=== PATIENT | female | born 1970 | race Caucasian/White ===

== ENCOUNTER 2025-05-18 13:30 | Outpatient (AMB) | payer BC, SELFPAY ==
--- NOTE | 2025-05-18 13:45 | A.OFFPC_ITS ---
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 Allergies No Known Allergies Allergy (Verified 05/18/25 13:46) Medication List - Last Reconciled 05/18/25 by Uma Tran PA-C calc-D3-mag cit,ox-K2-herb 353 300 mg-25 mcg- 66 mg-37.5 mcg (Alive Calcium- Vitamin D3-K2) tabs PO fluoxetine 40 mg PO BID levothyroxine 75 mcg PO DAILY omeprazole 10 mg PO DAILY trazodone 50 mg PO BEDTIME valacyclovir 1,000 mg PO BID PRN Tobacco use date assessed: 05/18/25 Dental Screening Dental Screen Date: 05/18/25 Did you have a dental visit in the last 12 months?: Yes Did you have a dental problem in the last 6 months where you did not have access to dental care?: No Was dental information given to patient?: 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 Presenting to establish care after her previous provider at [facility] retired. For her mental health conditions, she receives online care through [facility], including medication management and counseling. She is up-to-date with her electrical engineering intern for her HPV and has current Pap smears. The patient underwent a right knee meniscus repair in 2017. She continues to have issues with the knee, reporting that it mckinley and gives out, especially on stairs. She notes that the left knee has started to hurt due to compensation. She did not complete formal physical therapy after the surgery but has done it in the past and performs stretching exercises. The last X-ray of the knee was a year ago. She reports a history of pes planus (flat feet) since childhood, for which she previously wore braces in her shoes. This causes excruciating pain, as her arch lies flat on the floor, and is exacerbated by her job, which requires her to be on her feet all day. She currently uses roxi-wxa-ecatdom insoles. mammogram: 09/2025 scheduled eye doctor: Dr. 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 Mother No problems noted. Other Thyroid disease Social History Housing: House Patient Tobacco Use Status: Never used Tobacco Tobacco use type: Cigarette e-Cigarette/Vaping Use: Never Used Second Hand Smoke Exposure: No service: No Current occupational status: employed Current occupation: food safety technician Cognitive needs: No Hearing needs: No Vision needs: No Questionnaire PHQ-9 Over the last 2 weeks, how often have you been bothered by any of the following problems? 1. Little interest or pleasure in doing things: several days 2. Feeling down, depressed, or hopeless: several days 3. Trouble falling or staying asleep, or sleeping too much: not at all 4. Feeling tired or having little energy: several days 5. Poor appetite or overeating: several days 6. Feeling bad about yourself - or that you are a failure or have let yourself or your family down: several days 7. Trouble concentrating on things, such as reading the newspaper or watching television: several days 8. Moving or speaking so slowly that other people could have noticed. Or the opposite - being so fidgety or restless that you have been moving around a lot more than usual: several days 9. Thoughts that you would be better off or of hurting yourself in some way: not at all Total score: 7 Depression Screening Interpretation: Positive Depression Screening Follow-up: Existing condition and In treatment Depression Screening Done: Yes 62100 - PHQ-9 Billing: Yes Source: Developed by Drs. Marc Watson, Celeste Mar, Esa Painting and colleagues, with an educational andre from [employer]. Thrive Questionnaire Date Thrive assessed: 05/16/25 I am a: Patient What is your living situation today?: I have a steady place to live Within the past 12 months, did the food you bought not last and you didn't have the money to get more?: Sometimes True Within the past 12 months, did you worry whether your food would run out before you got money to buy more?: I choose not to answer this question Do you have trouble paying for medicines?: No Do you have trouble getting transportation to medical appointments?: No Do you have trouble paying your heating and electricity bill?: No Do you have trouble taking care of your child, family member or friend?: No Do you have trouble with day-to-day activities such as bathing, preparing meals, shopping, managing finances, etc.?: No Are you currently unemployed and looking for a job?: Yes Are you interested in more education?: No Please select the resources that you would like help with: None Currently or been in a relationship where the following occur: Controlled Emotionally and No concerns reported THRIVE Score: 2 AUDIT C Alcohol Use Questionnaire (AUDIT-C) 1. How often do you have a drink containing alcohol?: 2-4 times a month 2. How many drinks containing alcohol do you have on a typical day when you are drinking?: 3 or 4 3. How often do you have six or more drinks on one occasion?: Less than monthly Total Score: 4 Score Reviewed/Action Taken: Yes MIAH-7 AMB Questionnaire MIAH-7 Date MIAH - 7 assessed: 05/18/25 Feeling nervous, anxious, or on edge: 1 = Several days Not being able to stop or control worryin = Several days Worrying too much about different things: 1 = Several days Trouble relaxin = Several days Being so restless that it is hard to sit still: 1 = Several days Becoming easily annoyed or irritable: 1 = Several days Feeling afraid as if something awful might happen: 1 = Several days Total MIAH-7 score (0-4 normal; 5-9 mild; 10-14 moderate; 15-21 severe): 7 Source: Developed by Drs. Marc Watson, Celeste Mar, Esa Painting and colleagues, with an educational andre from [employer]. Review of Systems Const Denies body aches, Denies fatigue, Denies fever(s), Denies frequent falls and Denies weakness Eyes Reports no additional complaints and Denies change in vision ENT Denies dysphagia, Denies dizziness, Denies facial pain and Denies odynophagia Card Denies chest pain, Denies lightheadedness and Denies dyspnea Resp Denies dyspnea GI Denies abdominal pain, Denies dysphagia, Denies nausea, Denies odynophagia and Denies vomiting Denies urinary frequency, Denies dysuria, Denies urinary hesitancy and Denies urinary urgency Musc Reports as per HPI, Denies back pain and Denies myalgias Skin/Breast Reports system reviewed and no additional complaints, except as documented Neuro Denies dizziness, Denies frequent falls and Denies weakness Psych Reports no additional complaints Endo Denies fatigue Physical exam (Primary Care) Vital Signs: Last Vital Signs Pulse 57 05/18/25 13:49 BP 110/80 05/18/25 13:49 Pulse Ox 97 05/18/25 13:49 Oxygen Delivery Method Room Air 05/18/25 13:49 BMI result Body Mass Index 23.8 Tobacco/Smoking Status: Tobacco use Status Tobacco use date assessed 05/18/25 05/18/25 13:56 Patient Tobacco Use Status Never used Tobacco 05/18/25 13:56 Tobacco use type Cigarette 05/18/25 13:56 e-Cigarette/Vaping Use Never Used 05/18/25 13:56 PHQ-9: PHQ-9 Score PHQ-9: Total score 7 05/18/25 14:34 Depression Screening Interpretation: Positive Depression Screening Follow-up: Existing condition and In treatment Thrive Assessment: Date of Thrive Assessment Date Thrive assessed 05/16/25 05/18/25 13:56 Currently or been in a relationship where the following occur: Controlled Emotionally and No concerns reported Const General: cooperative, healthy appearing, comfortable and no acute distress Orientation/consciousness: patient oriented x3 HENMT Head: Yes normocephalic Ears: hearing grossly normal bilaterally General nose exam: Normal external nose present Eyes General: appearance normal, both eyes and all related structures Conjunctivae: conjunctivae normal Neck Neck: Yes full ROM and Yes no lymphadenopathy Resp Effort & Inspection: normal respiratory effort Auscultation: clear to auscultation bilaterally, no crackles, no rales, no rhonchi and no wheezes Cardio Rate: regular rate Rhythm: regular rhythm Skin General skin exam: no rashes or lesions noted Neuro General: patient oriented x3 Gait exam (Neuro): Normal gait present Extrem Other: TTP to lateral aspect of right knee. Intact strength, sensation and pulses in ann marie LE General: Yes normal to inspection, Yes full ROM and No edema Psych Affect: normal affect Attitude: cooperative Insight: Good insight present (Psych) Judgement: Good judgement present (Psych) Immunizations Tenivac (PF) 5 Lf unit-2 Lf unit/0.5 mL intramuscular syringe Performing Provider: Uma Tran PA-C [facility] Administered by: ZAHRA Devlin on 05/18/25 14:32 Dose Route Admin Location Dispensed Lot Number Expiration Date NDC Pin Inserter 0.5 mL IM Left Deltoid 0.5 mL [id number] 03/05/27 56491-349-39 [employer] Total Dispensed Waste 0.5 mL 0 % VIS Given Date VIS Provided VIS Publication Date 05/18/25 Single Vaccine 21 Eligibility Eligibility Date Funding Source Not [facility] Eligible 05/18/25 Private Coding Level of Care Code New Pt Level 4 (90965) Diagnoses Depression F32.A Anxiety F41.9 OCD (obsessive compulsive disorder) F42.9 GERD (gastroesophageal reflux disease) K21.9 HPV (human papilloma virus) infection B97.7 Hypercholesterolemia E78.00 Hypothyroidism E03.9 Flat feet M21.41; M21.42 Right knee pain M25.561 HSV (herpes simplex virus) infection B00.9 Additional Codes PHQ-9 - 26610 - PHQ-9 Billing: Yes ([id number]) Assessment & Plan Assessment & Plan (1) Depression: Comment: [facility] for medication and counseling Code(s): F32.A - Depression, unspecified Category: Medical Plan: The patient is established with an online mental health service, [facility], for medication management and counseling. She will continue with her current providers, who manage her fluoxetine and trazodone prescriptions. Discussed with patient if she would like in person counselor this can be arranged. (2) Anxiety: Code(s): F41.9 - Anxiety disorder, unspecified Category: Medical Plan: See above (3) OCD (obsessive compulsive disorder): Code(s): F42.9 - Obsessive-compulsive disorder, unspecified Category: Medical Plan: See above. (4) GERD (gastroesophageal reflux disease): Code(s): K21.9 - Gastro-esophageal reflux disease without esophagitis Category: Medical Plan: Avoid trigger foods such as citrus, tomato products, soda, caffeine, spicy foods and other foods that may be irritating to your stomach. Avoid laying flat 3-4 hours after eating and elevate the head of the bed 30 degrees to prevent acid from moving into the esophagus. 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 Triglyceride goal of less than 150 and LDL goal of less than 130. Ordered for updated blood work. (7) Hypothyroidism: Code(s): E03.9 - Hypothyroidism, unspecified Category: Medical Plan: The patient's thyroid function will be checked as part of her routine blood work. A refill for her levothyroxine will be sent to her preferred pharmacy. (8) Flat feet: Code(s): M21.41 - Flat foot [pes planus] (acquired), right foot; M21.42 - Flat foot [pes planus] (acquired), left foot Category: Medical Plan: The patient experiences excruciating foot pain related to her pes planus, which is exacerbated by her work. A referral will be placed to podiatry for evaluation for custom insoles or possible cortisone injections. (9) Right knee pain: Code(s): M25.561 - Pain in right knee Category: Medical Plan: The patient's symptoms of buckling and catching are concerning for meniscal pathology, particularly given her history of meniscal repair and subsequent risk for arthritis. An X-ray of the right knee will be ordered to assess for changes since her last imaging a year ago. A referral to orthopedics will be placed once the X-ray results are available to provide a more specific diagnosis for the consultation. (10) HSV (herpes simplex virus) infection: Code(s): B00.9 - Herpesviral infection, unspecified Category: Medical Plan: Continue on Valtrex as needed. Plan This note was constructed using voice recognition software. While every effort has been made to ensure accuracy and bottle house cleaners supervisor, still areas may have been included sometimes these areas may affect the content or meeting of the given symptoms. Total time spent caring for the patient today was thirty minutes. This includes time spent before the visit reviewing the chart, time spent during the visit, and time spent after the visit and documentation. Patient was informed and verbally consented to the use of an ambient scribe for clinic note documentation during this visit. Orders: Orders Vitamin D 25-OH Total Today Z13.21 - Encounter for screening for nutritional disorder Complete Blood Count Auto Diff Today E03.9 - Hypothyroidism, unspecified, Z13.0 - Encounter for screening for diseases of the blood and blood-forming organs and certain disorders involving the immune mechanism Td Immunization Today Z23 - Encounter for immunization XR knee RT 2V Today M25.561 - Pain in right knee Lipid Panel Today E78.00 - Pure hypercholesterolemia, unspecified Vitamin B12 and Folate Today Z13.21 - Encounter for screening for nutritional disorder TSH reflex Free T4 Today E03.9 - Hypothyroidism, unspecified Comprehensive Met. Panel Today E03.9 - Hypothyroidism, unspecified, Z00.00 - Encounter for general adult medical examination without abnormal findings Referrals Podiatry Referral M21.41 - Flat foot [pes planus] (acquired), right foot, M21.42 - Flat foot [pes planus] (acquired), left foot Medications: New levothyroxine 75 mcg PO DAILY 90 tabs 0RF
[2025-05-18 13:49] VITALS: BP 110/80; PULSE 57; O2SAT 97; BMI 23.8
--- OUTSIDE RECORDS SUMMARY | 2025-05-18 19:50 | XMS_ITS | Clinical Summary ---
Author Organization [facility] [address] [facility] [address] Address [address] [place] [address] Phone Care Team Providers Care Ekg/Ecg Technician Name Role Phone Uma Tran Primary Care Provider [phone] Medications traZODone (DESYREL) 50 mg tabletIndications:M ajor depressive disorder, single episode, severe without psychotic features (CMS/HCC V24, CMS/HCC V28) TAKE 1 TABLET BY MOUTH EVERYDAY AT BEDTIME 90 tablet 5 Active traZODone (DESYREL) 50 mg tablet Take 1 tablet (50 mg total) by mouth at bedtime. Active FLUoxetine (PROzac) 40 mg capsule Take 1 capsule (40 mg total) by mouth 2 (two) times a day. 180 each 1 5 Active levothyroxine (SYNTHROID, LEVOTHROID) 75 mcg tabletIndications:O ther specified hypothyroidism TAKE 1 TABLET BY MOUTH EVERY DAY 90 tablet 1 5 Active Surgical History Surgery Date Site/Laterality Comments TONSILLECTOMY PROCEDURE: HISTORICAL TONSILLECTOMY KNEE SURGERY 07/10/13 PROCEDURE: HISTORICAL KNEE SURGERY; COMMENT: right knee lateral meniscus, Dr Avalos OTHER SURGICAL HISTORY 10/22/16 Right PROCEDURE: HISTORY OTHER; COMMENT: Wide excision of TEODORO right lower labia Medical History Medical History Date Comments Esophageal reflux 05/31/2006 DX:Esophageal reflux Generalized anxiety disorder 05/31/2006 DX: Generalized anxiety disorder; COMMENT: Social phobia 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 Asencio Hypercholesteremia 12/22/2018 DX:Hyperchole steremia Hypothyroidism 11/07/2010 DX:Hypothyroidis m; COMMENT: 11/2010 Major depressive disorder, r ecurrent, moderate (CMS/HCC V24, CMS/HCC V28) 07/07/2019 DX:Major depressiv e disorder, recurrent, moderate (HCC) Obsessive compulsive disorder 07/07/2019 DX :Obsessive compulsive disorder Premature menopause 03/02/2018 DX:Premature menopause Family History Medical History Relation Name Comments Mental illness Father Other cancer Maternal Grandfather unknown , Other: aneurism Maternal Grandmother age 72, htn Hypertension Mother thyroid disorde r Other cancer Paternal Grandfather ca ncer liver, polyps Heart attack Paternal Grandmother DM, Htn Depression Sister 1 Suly Colon polyps Sister 2 Bee Depression Sister 2 Bee Colon polyps Sister 3 Elise Depression Sister 3 Elise Asthma Son Breast cancer Neg Hx Relation Name Status Comments Father Maternal Grandfather Maternal Grandmother Mother Paternal Grandfather Paternal Grandmother Sister 1 Suly Alive Sister 2 Bee Alive Sister 3 Elise Alive Son Social History Tobacco Use Types Packs/Day Years Used Date Smoking Tobacco: Never Smokeless Tobacco: Never Alcohol Use Standard Drinks/Week Comments Yes 0 (1 standard drink = 0.6 oz pur e alcohol) Comments No Sex and Gender Information Value Date Recorded Sex Assigned at Not on file Legal Sex Female 11:33 PM EST Gender Identity Not on file Sexual Orientation Not on file Obstetrics History Para Term AB IAB SAB Ectopic Multiple Livin g Live Births 3 3 3 3 Date Outcome GA Total Labor Labor/2nd/3rd Weight Sex Type Anes PTL Danna A1 A5 Name Clin Term Term Term Last Filed Vital Signs Vital Sign Reading Time Taken Comments Blood Pressure 122/78 12/14/2023 3:56 PM EDT Pulse 71 12/14/2023 3:56 PM EDT Temperature - - Respiratory Rate - - Oxygen Saturation - - Inhaled Oxygen Concentration - - Weight 70.2 kg (154 lb 12.8 oz) 12/14/2023 3:56 PM EDT Height 172.7 cm (5' 8 ) 12/14/2023 3:56 PM EDT Body Mass Index 23.54 12/14/2023 3:56 PM EDT Plan of Treatment Upcoming Encounters Date Type Department Care Team (Late st Contact Info) Description 10/02/2025 2:20 PM EDT Appointment Radiology Department [address] [id number] Health Maintenance Due Date Last Done Comments Colorectal Cancer Screening: Colonoscopy 1971 Hepatitis B Vaccines (1 of 3 - 19+ 3-dose series) 1990 Cervical Cancer Screening: Pap Smear 1992 Pneumococcal Vaccine: 50+ Years (1 of 1 - PCV) 2021 Zoster Vaccines (1 of 2) 2021 Cholesterol Screening (Lipid Panel) 06/13/2022 HIV Screening 06/13/2022 Hepatitis C Screening 06/13/2022 Social Influencers of Health Screening 06/13/2022 DTaP,Tdap,and Td Vaccines (2 - Td or Tdap) 01/17/2024 01/16/2014 Depression Screening 07/05/2024 COVID-19 Vaccine ( - season) 2025 06/17/2021, 10/16/2020, 09/24/2020 Influenza Vaccine (#1) 2025 2, 04/25/2010, 06/02/2007, Additional history exists Breast Cancer Screening 09/28/2026 09/29/19, 09/27/2023, 09/27/2023, Additional history exists RSV Immunization Adult Patients (1 - 1-dose 75+ series) 2046 HIB Vaccines Aged Out No longer eligi ble based on patient's age to complete this topic HPV Vaccines Aged Out No longer eligi ble based on patient's age to complete this topic Hepatitis A Vaccines Aged Out No long er eligible based on patient's age to complete this topic IPV Vaccines Aged Out No longer eligi ble based on patient's age to complete this topic MMR Vaccines Aged Out No longer eligi ble based on patient's age to complete this topic Meningococcal ACWY Vaccine Aged Out N o longer eligible based on patient's age to complete this topic Meningococcal B Vaccine Aged Out No l onger eligible based on patient's age to complete this topic RSV Immunization Patients Under 20 months Aged Out No longer eligible based on patient's age to complete this topic Varicella Vaccines Aged Out No longer eligible based on patient's age to complete this topic Procedures Procedure Name Priority Date/Time Associated Diagnosis Comments MG MAMMO DIGITAL SCREENING W AHSAN BILAT Routine 09/28/2024 3:06 PM EDT Encounter for screening mammogram for breast cancer from Last 3 Months or Most Recently Relevant to Health Maintenance Results * MG Mammo Digital Screening w Ahsan bilat (09/28/2024 3:06 PM EDT) Anatomical Region Laterality Modality Breast Bilateral Mammography 09/29/2024 10:4 2 AM EDT Impressions 09/29/2024 10:56 AM EDT No mammographic evidence for malignancy. BI-RADS CATEGORY: 1 - NEGATIVE RECOMMENDATION: Screening bilateral mammogram is recommended in 1 year. Mammo Location: [facility], [address] [place] [address], [id number], . -------- FINAL REPORT -------- Dictated By: Tonya Arciniega Dictated Date: 09/29/2024 10:42 ET Assigned Physician: Tonya Arciniega Reviewed and Electronically Signed By: Tonya Arciniega Signed Date: 09/29/2024 10:56 ET Workstation ID: [id number] Transcribed By: Self Edit Transcribed Date: 09/29/2024 10:42 ET Narrative 09/29/2024 10:56 AM EDT Bilateral screening mammogram. CLINICAL: 54 years old, Female, routine annual exam. COMPARISON: Prior mammograms, latest 09/27/2023. TECHNIQUE: Bilateral MLO and CC views were obtained digitally with 2-D C views and 3-D mammogram (digital breast tomosynthesis). Computer-aided detection was utilized in evaluation of this exam (CAD). FINDINGS: There is no evidence of suspicious mass or architectural distortion. No worrisome calcifications are evident. There has been no significant change from prior exam(s). BREAST DENSITY: C - The breasts are heterogeneously dense which may obscure small masses. Procedure Note Tonya Arciniega MD - 09/29/2024 Bilateral screening mammogram. CLINICAL: 54 years old, Female, routine annual exam. COMPARISON: Prior mammograms, latest 09/27/2023. TECHNIQUE: Bilateral MLO and CC views were obtained digitally with 2-D Cviews and 3-D mammogram (digital breast tomosynthesis). Computer-aideddetection was utilized in evaluation of this exam (CAD). FINDINGS: There is no evidence of suspicious mass or architectural distortion. Noworrisome calcifications are evident. There has been no significantchange from prior exam(s). BREAST DENSITY: C - The breasts are heterogeneously dense which mayobscure small masses. IMPRESSION: No mammographic evidence for malignancy. BI-RADS CATEGORY: 1 - NEGATIVE RECOMMENDATION: Screening bilateral mammogram is recommended in 1 year. Mammo Location: [facility], [address] [place] [address], [id number], . -------- FINAL REPORT -------- Dictated By: Tonya Arciniega Dictated Date: 09/29/2024 10:42 ET Assigned Physician: Tonya Arciniega Reviewed and Electronically Signed By: Tonya Arciniega Signed Date: 09/29/2024 10:56 ET Workstation ID: [id number] Transcribed By: Self Edit Transcribed Date: 09/29/2024 10:42 ET Renea Willard DO IMG BI PROCEDURES Final Result from Last 3 Months or Most Recently Relevant to Health Maintenance Insurance [facility] Care Teams Ekg/Ecg Technician Relationship Specialty Start Date End Date Uma Tran PA [address] [place] [phone] PCP - General 02/20/25
--- OUTSIDE RECORDS SUMMARY | 2025-05-18 19:50 | XMS_ITS ---
Author Name [facility] Organization Unknown Care Team Organization Name Specialty Phone Email Start Date End Da te [facility] Renea Willard DO Primary Care 07/13/202202/02 [facility] Termed, PROVIDER Primary Care 05/12/202202/02
== END 2025-05-18 14:35 | disposition home or self-care (01) ==
LOC: HO.HMCH 13:30
DX: F32.A Depression, unspecified (principal); F41.9 Anxiety disorder, unspecified; F42.9 Obsessive-compulsive disorder, unspecified; K21.9 Gastro-esophageal reflux disease without esophagitis; B97.7 Papillomavirus as the cause of diseases classified elsewhere; E78.00 Pure hypercholesterolemia, unspecified; E03.9 Hypothyroidism, unspecified; M21.41 Flat foot [pes planus] (acquired), right foot; M21.42 Flat foot [pes planus] (acquired), left foot; M25.561 Pain in right knee; B00.9 Herpesviral infection, unspecified; Z23 Encounter for immunization

== ENCOUNTER → 2025-05-18 13:30 | Outpatient (BNVA) | payer BC, SELFPAY | DX: M25.562 Pain in left knee (principal); F32.A Depression, unspecified; F41.9 Anxiety disorder, unspecified; F42.9 Obsessive-compulsive disorder, unspecified; K21.9 Gastro-esophageal reflux disease without esophagitis; B97.7 Papillomavirus as the cause of diseases classified elsewhere; E78.00 Pure hypercholesterolemia, unspecified; E03.9 Hypothyroidism, unspecified; M21.41 Flat foot [pes planus] (acquired), right foot; M21.42 Flat foot [pes planus] (acquired), left foot; M25.561 Pain in right knee; B00.9 Herpesviral infection, unspecified; Z23 Encounter for immunization | CPT/HCPCS: 90471; 90714; 96127 ==